=== PATIENT | male | born 1975 | race Caucasian/White ===

== ENCOUNTER 2019-11-17 | Emergency (ER) | payer OTHER | END 2019-11-17 02:54 | disposition home or self-care (01) | CPT/HCPCS: 36415; 80053; 81003; 82009; 82550; 83605; 83930; 85025; 96360; 96361; 99284 ==

== ENCOUNTER 2020-11-03 13:00 | Emergency (ER) | payer OTHER ==
[2020-11-03 13:08] VITALS: TEMP 98.1
[2020-11-03 13:11] LABS: Glucose,Whole Blood 230 mg/dL (75-99)
[2020-11-03] MEDS ORDERED: SODIUM CHLORIDE 0.9% 2,000 ML IV STA (13:18)
[2020-11-03 14:04] LABS: Appearance,Urine Clear (Clear); Bilirubin,Urine Negative (Negative); Blood,Urine Negative (Negative); Color,Urine Light Yellow; Glucose,Urine (UA) 4+ (Negative); Ketones,Urine Trace (Negative); Leukocyte Esterase,Urine Negative (Negative); Nitrite,Urine Negative (Negative); PH, Urine 5.5 (5.0-8.0); Protein,Urine Negative (Negative); Specific Gravity,Urine 1.036 (1.001-1.035); Urobilinogen,Urine <2.0 mg/dL (<2.0)
[2020-11-03 14:07] LABS: ALT 24 U/L (4-49); AST 21 U/L (17-59); African American GFR (CKD) >90 (>60 ml/min/1.73 sqM); Albumin 4.4 g/dL (3.5-5.0); Alkaline Phosphatase 92 U/L (38-126); Anion Gap 9 mmol/L; Blood Urea Nitrogen 27 mg/dL (9-20); Calcium 9.5 mg/dL (8.4-10.2); Carbon Dioxide 22 mmol/L (22-30); Chloride 104 mmol/L (98-107); Glucose 290 mg/dL (74-99); Lipase 228 U/L (23-300); Magnesium 1.8 mg/dL (1.6-2.3); Non-African American GFR(CKD) >90 (>60 ml/min/1.73 sqM); Potassium 4.7 mmol/L (3.5-5.1); Sodium 135 mmol/L (137-145); Total Bilirubin 0.9 mg/dL (0.2-1.3); Total Protein 7.6 g/dL (6.3-8.2)
[2020-11-03 14:13] LABS: Basophils # (A) 0.1 k/uL (0-0.2); Basophils % (A) 1 %; Eosinophils # (A) 0.3 k/uL (0-0.7); Eosinophils % (A) 3 %; HCT 45.3 % (39.0-53.0); HGB 15.9 gm/dL (13.0-17.5); Lymphocytes # (A) 2.5 k/uL (1.0-4.8); Lymphocytes % (A) 26 %; MCH 30.2 pg (25.0-35.0); MCV 86.1 fL (80.0-100.0); Mean Platelet Volume 8.6; Monocytes # (A) 0.5 k/uL (0-1.0); Monocytes % (A) 6 %; Neutrophils # (A) 6.1 k/uL (1.3-7.7); Neutrophils % (A) 64 %; Platelet Count 191 k/uL (150-450); RBC 5.26 m/uL (4.30-5.90); RDW 12.7 % (11.5-15.5); WBC 9.6 k/uL (3.8-10.6)
--- NOTE | 2020-11-03 14:18 | ED ---
General Adult HPI - General Chief complaint: Recheck/Abnormal Lab/Rx Stated complaint: High blood sugar Time Seen by Provider: 11/03/20 13:08 Source: patient, RN notes reviewed Mode of arrival: ambulatory Limitations: no limitations - History of Present Illness Initial comments: 45-year-old male presents emergency Department chief complaint of hyperglycemia. Patient's blood sugar has been recently elevated. Patient does state that he was doing well throughout the summer of last year and the winter with diet control. Patient states he was on metformin prior to that but states that he was not taking consistently because his blood sugar was well he states that recently has started taking it because of his diet change. Patient has noticed blood sugar has been in the 400s. Patient had slight nausea no chest pain or shortness breath no headache or dizziness currently. Patient had some polyuria. - Related Data Previous Rx's Medication Instructions Recorded metFORMIN HCL [Glucophage] 1,000 mg PO BID #60 tab 11/17/19 metFORMIN HCL 1,000 mg PO BID #60 tab 11/03/20 Allergies Allergy/AdvReac Type Severity Reaction Status Date / Time loperamide [From Imodium A-D] Allergy Rash/Hives Verified 11/03/20 13:08 Penicillins Allergy Rash/Hives Verified 11/03/20 13:08 Review of Systems ROS Statement: Those systems with pertinent positive or pertinent negative responses have been documented in the HPI. ROS Other: All systems not noted in ROS Statement are negative. Past Medical History Past Medical History: Diabetes Mellitus History of Any Multi-Drug Resistant Organisms: None Reported Past Surgical History: Orthopedic Surgery Past Psychological History: No Psychological Hx Reported Smoking Status: Current every day smoker Past Alcohol Use History: Occasional, Rare Past Drug Use History: None Reported General Exam Limitations: no limitations General appearance: alert, in no apparent distress Head exam: Present: atraumatic, normocephalic, normal inspection Eye exam: Present: normal appearance, PERRL, EOMI. Absent: scleral icterus, conjunctival injection, periorbital swelling ENT exam: Present: normal exam, normal oropharynx, mucous membranes moist Neck exam: Present: normal inspection, full ROM. Absent: tenderness, meni ngismus, lymphadenopathy Respiratory exam: Present: normal lung sounds bilaterally. Absent: respiratory distress, wheezes, rales, rhonchi, stridor Cardiovascular Exam: Present: regular rate, normal rhythm, normal heart sounds. Absent: systolic murmur, diastolic murmur, rubs, gallop, clicks GI/Abdominal exam: Present: soft, normal bowel sounds. Absent: distended, tenderness, guarding, rebound, rigid Extremities exam: Absent: pedal edema Neurological exam: Present: alert, oriented X3 Skin exam: Present: warm, dry, intact, normal color. Absent: rash Course Vital Signs 11/03/20 13:03 Temperature 98.1 F Pulse Rate 78 Respiratory 18 Rate Blood Pressure 138/94 O2 Sat by Pulse 97 Oximetry Medical Decision Making - Medical Decision Making 45-year-old male presented for hyperglycemia. Patient's hyperglycemia related to not taking his medications. Patient's blood sugar after 2 L of fluids is 276 though he did eat4 hot dogs prior arrival. Patient has no other major symptoms. Patient discharged in stable condition return parameters were discussed - Lab Data Result diagrams: 11/03/20 13:21 11/03/20 13:21 Lab Results 11/03/20 11/03/20 11/03/20 Range/Units 13:09 13:21 13:21 WBC 9.6 (3.8-10.6) k/uL RBC 5.26 (4.30-5.90) m/uL Hgb 15.9 (13.0-17.5) gm/dL Hct 45.3 (39.0-53.0) % MCV 86.1 (80.0-100.0) fL MCH 30.2 (25.0-35.0) pg MCHC 35.0 (31.0-37.0) g/dL RDW 12.7 (11.5-15.5) % Plt Count 191 (150-450) k/uL MPV 8.6 Neutrophils % 64 % Lymphocytes % 26 % Monocytes % 6 % Eosinophils % 3 % Basophils % 1 % Neutrophils # 6.1 (1.3-7.7) k/uL Lymphocytes # 2.5 (1.0-4.8) k/uL Monocytes # 0.5 (0-1.0) k/uL Eosinophils # 0.3 (0-0.7) k/uL Basophils # 0.1 (0-0.2) k/uL Sodium (137-145) mmol/L Potassium (3.5-5.1) mmol/L Chloride (98-107) mmol/L Carbon Dioxide (22-30) mmol/L Anion Gap mmol/L BUN (9-20) mg/dL Creatinine (0.66-1.25) mg/dL Est GFR (CKD-EPI)AfAm (>60 ml/min/1.73 sqM) Est GFR (CKD-EPI)NonAf (>60 ml/min/1.73 sqM) Glucose (74-99) mg/dL POC Glucose (mg/dL) 230 H (75-99) mg/dL POC Glu [employer] ID [facility] Plasma Lactic Acid Darren (0.7-2.0) mmol/L Calcium (8.4-10.2) mg/dL Magnesium (1.6-2.3) mg/dL Total Bilirubin (0.2-1.3) mg/dL AST (17-59) U/L ALT (4-49) U/L Alkaline Phosphatase (38-126) U/L Total Protein (6.3-8.2) g/dL Albumin (3.5-5.0) g/dL Lipase (23-300) U/L Urine Color Light Yellow Urine Appearance Clear (Clear) Urine pH 5.5 (5.0-8.0) Ur Specific [place] 1.036 H (1.001-1.035) Urine Protein Negative (Negative) Urine Glucose (UA) 4+ H (Negative) Urine Ketones Trace H (Negative) Urine Blood Negative (Negative) Urine Nitrite Negative (Negative) Urine Bilirubin Negative (Negative) Urine Urobilinogen <2.0 (<2.0) mg/dL Ur Leukocyte Esterase Negative (Negative) Acetone, Qual (Negative) 11/03/20 11/03/20 Range/Units 13:21 13:21 WBC (3.8-10.6) k/uL RBC (4.30-5.90) m/uL Hgb (13.0-17.5) gm/dL Hct (39.0-53.0) % MCV (80.0-100.0) fL MCH (25.0-35.0) pg MCHC (31.0-37.0) g/dL RDW (11.5-15.5) % Plt Count (150-450) k/uL MPV Neutrophils % % Lymphocytes % % Monocytes % % Eosinophils % % Basophils % % Neutrophils # (1.3-7.7) k/uL Lymphocytes # (1.0-4.8) k/uL Monocytes # (0-1.0) k/uL Eosinophils # (0-0.7) k/uL Basophils # (0-0.2) k/uL Sodium 135 L (137-145) mmol/L Potassium 4.7 (3.5-5.1) mmol/L Chloride 104 (98-107) mmol/L Carbon Dioxide 22 (22-30) mmol/L Anion Gap 9 mmol/L BUN 27 H (9-20) mg/dL Creatinine 0.92 (0.66-1.25) mg/dL Est GFR (CKD-EPI)AfAm >90 (>60 ml/min/1.73 sqM) Est GFR (CKD-EPI)NonAf >90 (>60 ml/min/1.73 sqM) Glucose 290 H (74-99) mg/dL POC Glucose (mg/dL) (75-99) mg/dL POC Glu [employer] ID Plasma Lactic Acid Darren 1.2 (0.7-2.0) mmol/L Calcium 9.5 (8.4-10.2) mg/dL Magnesium 1.8 (1.6-2.3) mg/dL Total Bilirubin 0.9 (0.2-1.3) mg/dL AST 21 (17-59) U/L ALT 24 (4-49) U/L Alkaline Phosphatase 92 (38-126) U/L Total Protein 7.6 (6.3-8.2) g/dL Albumin 4.4 (3.5-5.0) g/dL Lipase 228 (23-300) U/L Urine Color Urine Appearance (Clear) Urine pH (5.0-8.0) Ur Specific [place] (1.001-1.035) Urine Protein (Negative) Urine Glucose (UA) (Negative) Urine Ketones (Negative) Urine Blood (Negative) Urine Nitrite (Negative) Urine Bilirubin (Negative) Urine Urobilinogen (<2.0) mg/dL Ur Leukocyte Esterase (Negative) Acetone, Qual Negative (Negative) Disposition Clinical Impression: Hyperglycemia, Encounter for medication refill Disposition: HOME SELF-CARE Condition: Stable Instructions (If sedation given, give patient instructions): Diabetic Hyperglycemia (ED) Additional Instructions: Please return to the Emergency Department if symptoms worsen or any other concerns. Prescriptions: metFORMIN HCL 1,000 mg PO BID #60 tab Is patient prescribed a controlled substance at d/c from ED?: No Referrals: None,Stated [Primary Care Provider] - 1-2 days Kevin Caballero [STAFF PHYSICIAN] - 1-2 days Time of Disposition: 14:49
[2020-11-03 14:47] LABS: Glucose,Whole Blood 276 mg/dL (75-99)
[2020-11-03] MEDS ORDERED: INSULIN REGULAR 100 UNIT/ML VIAL IV ONE (14:47)
[2020-11-03 15:04] VITALS: BP 146/82; PULSE 80; RESP 20
== END 2020-11-03 15:06 | disposition home or self-care (01) ==
LOC: EC 13:00
DX: E11.65 Type 2 diabetes mellitus with hyperglycemia (principal); F17.200 Nicotine dependence, unspecified, uncomplicated; Z76.0 Encounter for issue of repeat prescription; Z79.84 Long term (current) use of oral hypoglycemic drugs
CPT/HCPCS: 36415; 80053; 81003; 82009; 83605; 83690; 83735; 85025; 99284

== ENCOUNTER 2021-08-11 11:24 | Emergency (ER) | payer OTHER ==
[2021-08-11 11:35] VITALS: TEMP 98.6
--- NOTE | 2021-08-11 12:54 | ED ---
URI HPI - General Chief Complaint: Upper Respiratory Infection Stated Complaint: chest pain, loss of taste & smell Time Seen by Provider: 08/11/21 11:52 Source: patient, RN notes reviewed Mode of arrival: ambulatory Limitations: no limitations - History of Present Illness Initial Comments: Patient is a 46-year-old male that presents to emergency department complaining of upper respiratory tract symptoms including cough. He notes he is unsure of his Covid exposure. He notes that he lost his sense of taste and smell 4 days ago and had symptoms 1-2 days prior. He was otherwise well-appearing. He denied any other issues or complaints. He denied chest pain shortness of breath headache nausea vomiting diarrhea constipation fever fatigue chills. - Related Data Previous Rx's Medication Instructions Recorded metFORMIN HCL [Glucophage] 1,000 mg PO BID #60 tab 11/17/19 metFORMIN HCL [Glucophage] 1,000 mg PO BID #60 tab 11/03/20 Allergies Allergy/AdvReac Type Severity Reaction Status Date / Time loperamide [From Imodium A-D] Allergy Rash/Hives Verified 08/11/21 11:35 Penicillins Allergy Rash/Hives Verified 08/11/21 11:35 Review of Systems ROS Statement: Those systems with pertinent positive or pertinent negative responses have been documented in the HPI. ROS Other: All systems not noted in ROS Statement are negative. Past Medical History Past Medical History: Diabetes Mellitus History of Any Multi-Drug Resistant Organisms: None Reported Past Surgical History: Orthopedic Surgery Past Psychological History: No Psychological Hx Reported Smoking Status: Current every day smoker Past Alcohol Use History: Occasional, Rare Past Drug Use History: None Reported General Exam Limitations: no limitations General appearance: alert, in no apparent distress Head exam: Present: atraumatic, normocephalic, normal inspection Eye exam: Present: normal appearance, PERRL, EOMI. Absent: scleral icterus, conjunctival injection, periorbital swelling ENT exam: Present: normal exam, mucous membranes moist Neck exam: Present: normal inspection Respiratory exam: Present: normal lung sounds bilaterally. Absent: respiratory distress, wheezes, rales, rhonchi, stridor Cardiovascular Exam: Present: regular rate, normal rhythm, normal heart sounds. Absent: systolic murmur, diastolic murmur, rubs, gallop, clicks GI/Abdominal exam: Present: soft, normal bowel sounds. Absent: distended, tenderness, guarding, rebound, rigid Extremities exam: Present: normal inspection, full ROM, normal capillary refill. Absent: tenderness, pedal edema, joint swelling, calf tenderness Neurological exam: Present: alert, oriented X3 Psychiatric exam: Present: normal affect, normal mood Skin exam: Present: warm, dry, intact, normal color. Absent: rash Course Vital Signs 08/11/21 11:32 Temperature 98.6 F Pulse Rate 87 Respiratory 20 Rate Blood Pressure 120/80 O2 Sat by Pulse 99 Oximetry Medical Decision Making - Medical Decision Making 46-year-old male with loss of sense of taste and a cough for the past several days. Covid test ordered. Covid test positive. Patient does meet criteria for monoclonal antibody infusion wishes to undergo IV infusion. Patient is agreeable with discharge home after. Case discussed with Dr. Winters. - Lab Data Lab Results 08/11/21 Range/Units 11:36 Coronavirus (PCR) Detected A (Not Detectd) Disposition Clinical Impression: COVID Disposition: HOME SELF-CARE Condition: Stable Instructions (If sedation given, give patient instructions): Coronavirus Disease 2019 (COVID-19) Additional Instructions: Please return to the Emergency Department if symptoms worsen or any other concerns. Is patient prescribed a controlled substance at d/c from ED?: No Referrals: None,Stated [Primary Care Provider] - 1-2 days Time of Disposition: 12:53
[2021-08-11] MEDS ORDERED: CASIRIVIMAB (REGN10933) (EUA) 600 MG, IMDEVIMAB (REGN10987) (EUA) 600 MG in SODIUM CHLO... IVPB ONE (13:00)
[2021-08-11] MEDS ORDERED: SODIUM CHLORIDE 0.9% 50 ML IVPB ONE (13:00)
[2021-08-11 14:37] VITALS: BP 142/92; PULSE 72; RESP 16
== END 2021-08-11 14:47 | disposition home or self-care (01) ==
LOC: EC 11:24
DX: U07.1 COVID-19 (principal); E11.9 Type 2 diabetes mellitus without complications; F17.200 Nicotine dependence, unspecified, uncomplicated; Z79.84 Long term (current) use of oral hypoglycemic drugs
CPT/HCPCS: 87635; 99284; Q0244

== ENCOUNTER 2024-09-11 11:57 | Observation (INO) | payer BC, OTHER ==
--- NOTE | 2024-09-11 12:12 | ED ---
Recheck HPI - General Source: patient, RN notes reviewed Mode of arrival: ambulatory Limitations: no limitations <Caron Fernandez - Last Filed: 09/11/24 12:09> <Ayala Mcleod - Last Filed: 09/11/24 21:28> - General Stated Complaint: high blood sugar Time Seen by Provider: 09/11/24 12:09 - History of Present Illness Initial Comments: Quick note: 49 year old male presenting to the ER for evaluation of hypergylcemia. Patient is a type II diabetic and take metformin and glipizide. He states he felt dizzy at work and check his sugar which was found to be 398. He took both of his medications this am. (Caron Fernandez) Patient is a 49-year-old male presenting today for dizziness and hyperglycemia. Pt states that he has been out of his glipizide for 1 month due to issues getting to the pharmacy to fill his script. He was also previously on Januvia however has not been able to take that for 2 months due to cost. Patient currently is taking 1000 mg of metformin twice daily. This morning he was at work, walking when he felt like he "saw stars" and did not feel like himself. He checked his blood sugar and it was 398. On recheck blood sugar remained in the 300s so he called his who brought him to the hospital. Pt endorses his tongue feeling as though it his "numb" but denies slurred speech currently, states he has had intermittent numbness in his left 1st and 2nd digits over the last 2-3 days without injury. Currently denies changes in vision, dizziness, headache, difficulty swallowing, chest pain, difficulty in breathing, fevers, chills, recent illness, nausea, vomiting, abdominal pain, diarrhea, urinary frequency. No hx prior CVA, no hx CAD. (Ayala Mcleod) - Related Data Home Medications Medication Instructions Recorded Confirmed Glipizide (Unknown) 10 mg PO DIRECTED 09/11/24 09/11/24 metFORMIN HCL [Glucophage] 1,000 mg PO DIRECTED 09/11/24 09/11/24 Allergies Allergy/AdvReac Type Severity Reaction Status Date / Time loperamide [From Imodium A-D] Allergy Rash/Hives Verified 09/11/24 19:09 Penicillins Allergy Rash/Hives Verified 09/11/24 19:09 Review of Systems ROS Other: All systems not noted in ROS Statement are negative. <Caron Fernandez - Last Filed: 09/11/24 12:09> ROS Other: All systems not noted in ROS Statement are negative. <Ayala Mcleod - Last Filed: 09/11/24 21:28> ROS Statement: Those systems with pertinent positive or pertinent negative responses have been documented in the HPI. Past Medical History Past Medical History: Diabetes Mellitus History of Any Multi-Drug Resistant Organisms: None Reported Past Surgical History: Orthopedic Surgery Past Psychological History: No Psychological Hx Reported Smoking Status: Current every day smoker Past Alcohol Use History: Occasional, Rare Past Drug Use History: None Reported <PhilipcathieCaron - Last Filed: 09/11/24 12:09> General Exam <Ayala Mcleod - Last Filed: 09/11/24 21:28> - General Exam Comments Initial Comments: PE: CONSTITUTIONAL: No apparent distress, well appearing SKIN: Warm, dry, no jaundice, hives or petechiae EYES: Pupils are equally round, extraocular movements intact without nystagmus, clear conjunctiva, non-icteric sclera HENT: Normocephalic, atraumatic, moist mucus membranes, oropharynx clear without exudates NECK: , Full range of motion, normal appearance PULMONARY: Clear to auscultation without wheezes, rhonchi, or rales, normal excursion, no accessory muscle use and no stridor CARDIOVASCULAR: Regular rate, rhythm, normal S1 and S2. No appreciated murmurs, rubs or gallops. Extremities well-perfused no lower extremity edema GASTROINTESTINAL: Soft, active bowel sounds throughout, non-tender, non- distended, no palpable masses, no rebound or guarding. No hepatosplenomegaly GENITOURINARY: MUSCULOSKELETAL: Extremities have no gross deformity, no edema, redness, or swelling. NEUROLOGIC:_a/o x 3, GCS 15, normal mentation and speech. Moves all extremities x 4 without motor or sensory deficit, cranial nerves: II (visual mantilla without defects), III, IV and (extraocular movements are intact, pupils are equal with normal reaction to light), V (intact facial sensation and jaw opening), VII (no facial droop), IX and X (normal palate movement, midline uvula, normal voice), XI (symmetrical shoulder shrug), XII (midline tongue protrusion). Motor strength is 5/5 in all extremities. No abnormal movements. Normal muscle tone. Sensation to light touch is intact bilaterally, w/ exception of tingling in left 1st and 2nd digits. No cerebellar signs ([id number], jxoq-[id number], and rapid alternating movements are normal) PSYCHIATRIC:_normal mood and affect, thought process is clear and linear (Ayala Mcleod) Course Vital Signs 09/11/24 09/11/24 09/11/24 12:35 17:49 19:43 Temperature 98.2 F Pulse Rate 70 54 L 87 Respiratory 20 18 18 Rate Blood Pressure 172/96 136/94 138/102 O2 Sat by Pulse 99 99 98 Oximetry Medical Decision Making - Lab Data Result diagrams: 09/11/24 14:46 09/11/24 14:46 <Ayala Mcleod - Last Filed: 09/11/24 21:28> - Medical Decision Making Was pt. sent in by a medical professional or institution (, PA, CHIPPER MACHINE OPERATOR, urgent care, hospital, or jail...) When possible be specific @ -No Did you speak to anyone other than the patient for history (EMS, parent, family, police, friend...)? What history was obtained from this source @ -No Did you review nursing and triage notes (agree or disagree)? Why? @ -I reviewed nursing and triage notes Were old charts reviewed (outside hosp., previous admission, EMS record, old EKG, old radiological studies, urgent care reports/EKG's, jail records)? Report findings @ -Medical records reviewed Differential Diagnosis (chest pain, altered mental status, abdominal pain women, abdominal pain men, vaginal bleeding, weakness, fever, dyspnea, syncope, h eadache, dizziness, GI bleed, back pain, seizure, CVA, palpatations, mental health, musculoskeletal)? @ -Differential diagnose remains broad over top considerations include uncontrolled diabetes mellitus, secondary to dietary intake, medication noncompliance, uncontrolled diabetes, HHS, DKA, infection, this is not all- inclusive list EKG interpreted by me (3pts min.). @Sinus bradycardia, rate 50 bpm, WI interval 193 ms, QRS duration 98 ms QT/QTc 427/401 ms, normal axis, no STEMI, no significant ST elevations or depressions X-rays interpreted by me (1pt min.). @No cardiomegaly, consolidations or pleural effusion CT interpreted by me (1pt min.). @ -No evidence of hemorrhage, mass effect or mass on CT brain, no evidence of dissection or large vessel occlusion on CTA U/S interpreted by me (1pt. min.). @ -None done What testing was considered but not performed or refused? (CT, X-rays, U/S, l abs)? Why? @ -None What meds were considered but not given or refused? Why? @ -None Did you discuss the management of the patient with other professionals (professionals i.e. DrSrinivasan, PA, CHIPPER MACHINE OPERATOR, lab, RT, psych nurse, social media intern, immigration lawyer, teacher, chemistry technical officer, case technician)? Give summary @ Case was discussed with Dr. Canela, as admission was considered for hyperglycemia however Dr. Canela kindly recommended Insulin levimir 20U, dose sliding scale/insulin novolog, pt's home glipize and metoformin and outpatient follow up Was smoking cessation discussed for >3mins.? @ -No Was critical care preformed (if so, how long)? Yes, 35 minutes Were there social determinants of health that impacted care today? How? (Homelessness, low income, unemployed, alcoholism, drug addiction, transportation, low edu. Level, literacy, decrease access to med. care, skilled nursing, rehab)? @ -No Was there de-escalation of care discussed even if they declined (Discuss DNR or withdrawal of care, Hospice)? @ -No What co-morbidities impacted this encounter? (DM, HTN, Smoking, COPD, CAD, Cancer, CVA, ARF, Chemo, Hep., AIDS, mental health diagnosis, sleep apnea, morbid obesity)? @ -DM Was patient admitted / discharged? Hospital course, mention meds given and route, prescriptions, significant lab abnormalities, going to OR and other pertinent info. @ -Admission- Patient is a 49 y/o male PMH DM presenting today for light headedness, checked his sugar today was noted to be hyperglycemic with blood glucose 398. Blood glucose here 271. Patient endorses feeling like his tongue feels numb and his head feels fuzzy, otherwise denies changes in vision, urinary frequency, chest pain or shortness of breath. No history of CHF. 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 He did state that he also had "A couple of faygos" (soda) this weekend which also may be contributing to his hypergylcemia. CBC and CMP were obtained while patient was in triage. Aside from hyperglycemia labs reassuring. Added acetone level, will give IV fluids and reassess. After 2 L normal saline, and patient being n.p.o. throughout the day today, blood glucose actually increased to 229. I reassessed the patient and he endorses mild improvement of symptoms. I discussed with patient and administering IV insulin and metformin and reassessing versus admission for observation. Patient and are concerned as the patient lives all the way in [place] and should patient's hyperglycemia worsen this evening, they will need to drive back. Will discuss with Dr. Canela for potential admission. Discussed with Dr. Canela, recs as above, will attempt further glycemic control. Patient's sensation of tongue numbness did not improve as glucose became more controlled and also noted intermittent tingling in 1st and 2nd digits over the last 2 days. I suspected tingling was secondary to peripheral neuropathy however cannot rule out central cause. Neuro exam remarkable only for tingling in 1st and 2nd digits of left hand, NIH 1, so stroke alert was not called however CT brain/CTA ordered to assess for intracranial cause of tongue numbness/finger tingling. Pt agreeable with POC. Imaging negative for acute process. Case discussed with Dr. Canela, kindly accepts patient for admission. Undiagnosed new problem with uncertain prognosis? @ -No Drug Therapy requiring intensive monitoring for toxicity (Heparin, Nitro, Insulin, Cardizem)? @ -No Were any procedures done? @ -No Diagnosis/symptom? Acute Acute, or Chronic, or Acute on Chronic? Hyperglycemia, dizziness, tongue numbness Uncomplicated (without systemic symptoms) or Complicated (systemic symptoms)? @complicated Side effects of treatment? @ -No Exacerbation, Progression, or Severe Exacerbation? @ -No Poses a threat to life or bodily function? How? (Chest pain, [place], [place], pneumonia, PE, COPD, DKA, ARF, appy, cholecystitis, CVA, Diverticulitis, Homicidal, Suicidal, threat to staff... and all critical care pts) @ -Potentially (Ayala Mcleod) - Lab Data Lab Results 09/11/24 09/11/24 09/11/24 Range/Units 14:46 14:46 14:46 WBC 8.5 (3.8-10.6) k/uL RBC 5.16 (4.30-5.90) m/uL Hgb 15.1 (13.0-17.5) gm/dL Hct 45.0 (39.0-53.0) % MCV 87.1 (80.0-100.0) fL MCH 29.2 (25.0-35.0) pg MCHC 33.5 (31.0-37.0) g/dL RDW 12.2 (11.5-15.5) % Plt Count 231 (150-450) k/uL MPV 8.4 Neutrophils % 61 % Lymphocytes % 29 % Monocytes % 5 % Eosinophils % 3 % Basophils % 1 % Neutrophils # 5.2 (1.3-7.7) k/uL Lymphocytes # 2.4 (1.0-4.8) k/uL Monocytes # 0.4 (0-1.0) k/uL Eosinophils # 0.3 (0-0.7) k/uL Basophils # 0.1 (0-0.2) k/uL PT (10.0-12.5) sec INR (<1.2) APTT (22.0-30.0) sec Sodium 135 L (137-145) mmol/L Potassium 4.6 (3.5-5.1) mmol/L Chloride 100 (98-107) mmol/L Carbon Dioxide 23 (22-30) mmol/L Anion Gap 12 mmol/L BUN 18 (9-20) mg/dL Creatinine 0.80 (0.66-1.25) mg/dL Est GFR (CKD-EPI)AfAm >90 (>60 ml/min/1.73 sqM) Est GFR (CKD-EPI)NonAf >90 (>60 ml/min/1.73 sqM) Glucose 271 H (74-99) mg/dL POC Glucose (mg/dL) (70-110) mg/dL POC Glu Medical Transcription Radiology ID Calcium 9.5 (8.4-10.2) mg/dL Total Bilirubin 0.8 (0.2-1.3) mg/dL AST 25 (17-59) U/L ALT 36 (4-49) U/L Alkaline Phosphatase 117 (38-126) U/L Creatine Kinase (55-170) U/L Troponin I (0.000-0.034) ng/mL Total Protein 7.8 (6.3-8.2) g/dL Albumin 4.7 (3.5-5.0) g/dL Acetone, Qual Negative (Negative) 09/11/24 09/11/24 09/11/24 Range/Units 16:45 17:53 19:01 WBC (3.8-10.6) k/uL RBC (4.30-5.90) m/uL Hgb (13.0-17.5) gm/dL Hct (39.0-53.0) % MCV (80.0-100.0) fL MCH (25.0-35.0) pg MCHC (31.0-37.0) g/dL RDW (11.5-15.5) % Plt Count (150-450) k/uL MPV Neutrophils % % Lymphocytes % % Monocytes % % Eosinophils % % Basophils % % Neutrophils # (1.3-7.7) k/uL Lymphocytes # (1.0-4.8) k/uL Monocytes # (0-1.0) k/uL Eosinophils # (0-0.7) k/uL Basophils # (0-0.2) k/uL PT (10.0-12.5) sec INR (<1.2) APTT (22.0-30.0) sec Sodium (137-145) mmol/L Potassium (3.5-5.1) mmol/L Chloride (98-107) mmol/L Carbon Dioxide (22-30) mmol/L Anion Gap mmol/L BUN (9-20) mg/dL Creatinine (0.66-1.25) mg/dL Est GFR (CKD-EPI)AfAm (>60 ml/min/1.73 sqM) Est GFR (CKD-EPI)NonAf (>60 ml/min/1.73 sqM) Glucose (74-99) mg/dL POC Glucose (mg/dL) 217 H 229 H 193 H (70-110) mg/dL POC Glu Medical Transcription Radiology ID Nida HUBBARD Calcium (8.4-10.2) mg/dL Total Bilirubin (0.2-1.3) mg/dL AST (17-59) U/L ALT (4-49) U/L Alkaline Phosphatase (38-126) U/L Creatine Kinase (55-170) U/L Troponin I (0.000-0.034) ng/mL Total Protein (6.3-8.2) g/dL Albumin (3.5-5.0) g/dL Acetone, Qual (Negative) 09/11/24 09/11/24 09/11/24 Range/Units 19:43 19:43 19:43 WBC (3.8-10.6) k/uL RBC (4.30-5.90) m/uL Hgb (13.0-17.5) gm/dL Hct (39.0-53.0) % MCV (80.0-100.0) fL MCH (25.0-35.0) pg MCHC (31.0-37.0) g/dL RDW (11.5-15.5) % Plt Count (150-450) k/uL MPV Neutrophils % % Lymphocytes % % Monocytes % % Eosinophils % % Basophils % % Neutrophils # (1.3-7.7) k/uL Lymphocytes # (1.0-4.8) k/uL Monocytes # (0-1.0) k/uL Eosinophils # (0-0.7) k/uL Basophils # (0-0.2) k/uL PT 11.7 (10.0-12.5) sec INR 1.1 (<1.2) APTT 25.1 (22.0-30.0) sec Sodium (137-145) mmol/L Potassium (3.5-5.1) mmol/L Chloride (98-107) mmol/L Carbon Dioxide (22-30) mmol/L Anion Gap mmol/L BUN (9-20) mg/dL Creatinine (0.66-1.25) mg/dL Est GFR (CKD-EPI)AfAm (>60 ml/min/1.73 sqM) Est GFR (CKD-EPI)NonAf (>60 ml/min/1.73 sqM) Glucose (74-99) mg/dL POC Glucose (mg/dL) (70-110) mg/dL POC Glu Medical Transcription Radiology ID Calcium (8.4-10.2) mg/dL Total Bilirubin (0.2-1.3) mg/dL AST (17-59) U/L ALT (4-49) U/L Alkaline Phosphatase (38-126) U/L Creatine Kinase 138 (55-170) U/L Troponin I <0.012 (0.000-0.034) ng/mL Total Protein (6.3-8.2) g/dL Albumin (3.5-5.0) g/dL Acetone, Qual (Negative) 09/11/24 Range/Units 20:41 WBC (3.8-10.6) k/uL RBC (4.30-5.90) m/uL Hgb (13.0-17.5) gm/dL Hct (39.0-53.0) % MCV (80.0-100.0) fL MCH (25.0-35.0) pg MCHC (31.0-37.0) g/dL RDW (11.5-15.5) % Plt Count (150-450) k/uL MPV Neutrophils % % Lymphocytes % % Monocytes % % Eosinophils % % Basophils % % Neutrophils # (1.3-7.7) k/uL Lymphocytes # (1.0-4.8) k/uL Monocytes # (0-1.0) k/uL Eosinophils # (0-0.7) k/uL Basophils # (0-0.2) k/uL PT (10.0-12.5) sec INR (<1.2) APTT (22.0-30.0) sec Sodium (137-145) mmol/L Potassium (3.5-5.1) mmol/L Chloride (98-107) mmol/L Carbon Dioxide (22-30) mmol/L Anion Gap mmol/L BUN (9-20) mg/dL Creatinine (0.66-1.25) mg/dL Est GFR (CKD-EPI)AfAm (>60 ml/min/1.73 sqM) Est GFR (CKD-EPI)NonAf (>60 ml/min/1.73 sqM) Glucose (74-99) mg/dL POC Glucose (mg/dL) 225 H (70-110) mg/dL POC Glu Medical Transcription Radiology ID SATISH HAYDEE Calcium (8.4-10.2) mg/dL Total Bilirubin (0.2-1.3) mg/dL AST (17-59) U/L ALT (4-49) U/L Alkaline Phosphatase (38-126) U/L Creatine Kinase (55-170) U/L Troponin I (0.000-0.034) ng/mL Total Protein (6.3-8.2) g/dL Albumin (3.5-5.0) g/dL Acetone, Qual (Negative) Disposition <Caron Fernandez - Last Filed: 09/11/24 12:09> <Ayala Mcleod - Last Filed: 09/11/24 21:28> Clinical Impression: Hyperglycemia, Numbness Disposition: ADMITTED IP TO THIS HOSP Condition: Stable Referrals: Moises Villarreal NPC [REFERRING] - 1-2 days
[2024-09-11 14:52] LABS: Basophils # (A) 0.1 k/uL (0-0.2); Basophils % (A) 1 %; Eosinophils # (A) 0.3 k/uL (0-0.7); Eosinophils % (A) 3 %; HGB 15.1 gm/dL (13.0-17.5); Lymphocytes # (A) 2.4 k/uL (1.0-4.8); Lymphocytes % (A) 29 %; MCH 29.2 pg (25.0-35.0); MCHC 33.5 g/dL (31.0-37.0); MCV 87.1 fL (80.0-100.0); Mean Platelet Volume 8.4; Monocytes # (A) 0.4 k/uL (0-1.0); Monocytes % (A) 5 %; Neutrophils # (A) 5.2 k/uL (1.3-7.7); Neutrophils % (A) 61 %; Platelet Count 231 k/uL (150-450); RBC 5.16 m/uL (4.30-5.90); RDW 12.2 % (11.5-15.5); WBC 8.5 k/uL (3.8-10.6)
[2024-09-11 15:07] LABS: ALT 36 U/L (4-49); AST 25 U/L (17-59); African American GFR (CKD) >90 (>60 ml/min/1.73 sqM); Albumin 4.7 g/dL (3.5-5.0); Alkaline Phosphatase 117 U/L (38-126); Anion Gap 12 mmol/L; Blood Urea Nitrogen 18 mg/dL (9-20); Calcium 9.5 mg/dL (8.4-10.2); Carbon Dioxide 23 mmol/L (22-30); Chloride 100 mmol/L (98-107); Glucose 271 mg/dL (74-99); Non-African American GFR(CKD) >90 (>60 ml/min/1.73 sqM); Potassium 4.6 mmol/L (3.5-5.1); Sodium 135 mmol/L (137-145); Total Bilirubin 0.8 mg/dL (0.2-1.3); Total Protein 7.8 g/dL (6.3-8.2)
[2024-09-11] MEDS: SODIUM CHLORIDE 0.9% 2,000 ML IV ONE (16:02)
[2024-09-11 16:46] LABS: Glucose,Whole Blood 217 mg/dL (70-110)
[2024-09-11 17:54] LABS: Glucose,Whole Blood 229 mg/dL (70-110)
[2024-09-11 19:03] LABS: Glucose,Whole Blood 193 mg/dL (70-110)
[2024-09-11] MEDS: INSULIN REGULAR 100 UNIT/ML VIAL (IV) IV ONE (19:08)
[2024-09-11] MEDS: INSULIN ASPART (NovoLOG) 100 UNIT/ML VIAL SQ ONE ×2 (19:23→19:32)
[2024-09-11] MEDS: glipiZIDE 10 MG TAB PO STA (19:31)
[2024-09-11] MEDS: metFORMIN 500 MG TAB PO SCH (19:31)
[2024-09-11] MEDS: INSULIN DETEMIR (LEVEMIR) 100 UNIT/ML SYR SQ SCH (19:35)
--- NOTE | 2024-09-11 20:10 | XR ---
EXAMINATION TYPE: XR chest 2V DATE OF EXAM: 09/11/2024 CLINICAL HISTORY: Altered mental status. TECHNIQUE: Frontal and lateral views of the chest are obtained. COMPARISON: None FINDINGS: There is no suspicious focal air space opacity, pleural effusion, or pneumothorax seen. T he cardiac silhouette size is within normal limits. The osseous structures are intact. IMPRESSION: No acute cardiopulmonary process. [facility], , 09/11/2024 8:07 PM
[2024-09-11 20:19] LABS: INR 1.1 (<1.2); Partial Thromboplastin Time 25.1 sec (22.0-30.0); Prothrombin Time 11.7 sec (10.0-12.5)
--- NOTE | 2024-09-11 20:32 | CT ---
EXAMINATION TYPE: CT brain wo con DATE OF EXAM: 09/11/2024 COMPARISON: None. CLINICAL INDICATION: Male, 49 years old with history of tongue numb, left 1st 2nd digits tingling L h and; PHH, Tongue numbness, 1st 2nd digit tingling left hand. TECHNIQUE: CT of the brain performed without contrast with sagittal and coronal reformats. CT DLP: 1115 mGycm Automated exposure control for dose reduction was used. FINDINGS: There is no acute intracranial hemorrhage or midline shift identified. Mild sulcal prominence greates t superiorly is seen. No hydrocephalus. Alan-white matter differentiation is maintained. The globes a re intact and the visualized sinuses are clear. IMPRESSION: No acute intracranial hemorrhage or midline shift is seen. If there is clinical concern for acute stroke further investigation with MRI study may be warranted. [facility], , 09/11/2024 8:30 PM
--- NOTE | 2024-09-11 20:36 | CT ---
EXAMINATION TYPE: CT angio head neck DATE OF EXAM: 09/11/2024 COMPARISON: CLINICAL INDICATION: Male, 49 years old with history of tongue numbness, 1st 2nd digit tingling left hand; PHH, Tongue numbness, 1st 2nd digit tingling left hand. TECHNIQUE: CTA scan of the head and neck is performed with IV Contrast, patient injected with 65 ml mL of Isovue 370, axial images are obtained, coronal and sagittal reformatted images are reviewed. 3D reconstructed images are created on an independent workstation and reviewed. CT DLP: 694.9 mGycm Automated exposure control for dose reduction was used. NASCET criteria was used in interpretation of this exam? FINDINGS: Right Carotid System: The common carotid artery and external carotid artery are patent. The carotid bifurcation demonstrate s no evidence of hemodynamically significant stenosis. The remaining portions of the internal carotid artery demonstrate normal size without significant narrowing. Mild peripheral calcified plaque dista lly. Left Carotid System: The common carotid artery and external carotid artery are patent. The carotid bifurcation demonstrate s no evidence of hemodynamically significant stenosis. The remaining portions of the internal carotid artery demonstrate normal size without significant narrowing. Mild peripheral calcified plaque dista lly. Vertebral arteries are patent without evidence hemodynamically significant stenosis. Vertebral arteri es are codominant There is a bovine type aortic arch which is normal.. The origins of the great vessels are patent. No evidence of hemodynamically significant stenosis. Poorly visualized anterior communicating and bilateral posterior indicating artery. No large vessel o cclusion or aneurysm at level of the [place]. Other: [id number] multilevel spurring and mild disc space narrowing in the mid to lower cervica l spine. IMPRESSION: 1. No evidence of significant stenosis at the carotid bifurcations. No large vessel occlusion or an eurysm at the level of the [place]. [facility], , 09/11/2024 8:33 PM
[2024-09-11] MEDS: ASPIRIN 325 MG TAB PO STA (20:39)
[2024-09-11 20:43] LABS: Glucose,Whole Blood 225 mg/dL (70-110)
[2024-09-11] MEDS ORDERED: ACETAMINOPHEN TAB 325 MG TAB PO PRN (21:14)
[2024-09-11] MEDS ORDERED: CALCIUM CARBONATE 500 MG CHEWABLE PO PRN (21:14)
[2024-09-11] MEDS ORDERED: NALOXONE 0.4 MG/ML 1 ML VIAL IV PRN (21:14)
[2024-09-11] MEDS ORDERED: LORazepam 0.5 MG TAB PO PRN (21:14)
[2024-09-11] MEDS ORDERED: traMADol 50 MG TAB PO PRN (21:14)
[2024-09-11] MEDS ORDERED: PROCHLORPERAZINE 5 MG TAB PO PRN (21:14)
[2024-09-11] MEDS ORDERED: MAG HYDROX/AL HYDROX/SIMETH 30 ML CUP PO PRN (21:14)
[2024-09-11 22:25] LABS: Glucose,Whole Blood 183 mg/dL (70-110)
[2024-09-12 05:35] LABS: Glucose,Whole Blood 128 mg/dL (70-110)
[2024-09-12] MEDS: INSULIN ASPART (NovoLOG) 100 UNIT/ML VIAL SQ SCH (05:43)
[2024-09-12] MEDS ORDERED: MIDAZOLAM 1 MG/ML 5 ML VIAL IV PRN (06:00)
[2024-09-12] MEDS: FAMOTIDINE 20 MG TAB PO SCH (08:35)
[2024-09-12] MEDS ORDERED: NON FORMULARY DRUG (Metformin Hcl [Glucophage] 1,000 MG Tablet) PO SCH (09:00)
[2024-09-12] MEDS: glipiZIDE 10 MG TAB PO SCH ×2 (09:13→18:19)
[2024-09-12 12:11] LABS: Glucose,Whole Blood 194 mg/dL (70-110)
[2024-09-12] MEDS: ENOXAPARIN 40 MG/0.4 ML SYRINGE SQ SCH (13:33)
[2024-09-12] MEDS: LORazepam 1 MG TAB PO STA (14:23)
[2024-09-12 15:13] LABS: Chol/HDL Ratio 5.09 Ratio; LDL Cholesterol,Calculated 98.8 mg/dL (0.0-131.0)
--- NOTE | 2024-09-12 16:12 | MR ---
EXAMINATION TYPE: MR brain wo con DATE OF EXAM: 09/12/2024 COMPARISON: CT brain 1 day earlier. HISTORY: Concern for TIA, left hand and extremity numbness. Numbness. TECHNIQUE: Multiplanar, multisequence imaging of the brain and brainstem is performed without IV cont rast. FINDINGS: Diffusion weighted images demonstrate no evidence of a recent infarct or other diffusion abnormality. There is no extraaxial fluid collection or significant white matter signal abnormality. The ventricu lar system and cisternal spaces are normal in size and appearance. The brain volume is age appropria te. Midline structures demonstrate normal morphology. The craniocervical junction appears within normal limits. Normal vascular flow voids are present. The visualized sinuses are clear and the globes are i ntact. IMPRESSION: No MRI evidence for a recent infarct. No suspicious findings are identified. [facility], , 09/12/2024 4:10 PM
[2024-09-12] MEDS: ASPIRIN 325 MG TAB PO SCH (16:18)
[2024-09-12 17:51] LABS: Glucose,Whole Blood 244 mg/dL (70-110)
--- NOTE | 2024-09-12 18:02 | P.HPIM ---
History of Present Illness H&P Date: 09/12/24 Chief Complaint: Tongue numbness, finger numbness Very pleasant 49-year-old patient, follows with Beto Villarreal. Patient been diagnosed with diabetes for last 15 years. Normally takes metformin and glipizide. Feels reasonably controlled. Before the holidays patient ran out of his glipizide and has not taken it for close to 2 months. Patient works with [employer]. When he was working yesterday he felt as if he may pass out. [place] dizzy. Sat down. Went to his truck and took his Accu-Chek came back at 387 and repeat after some time was 398. He also felt his tongue was a bit uncomfortable not really swollen and also had some numbness in the pinky and the fourth finger on the left hand on the forearm. Otherwise no change in speech headache otherwise. Also the patient's been experiencing leg cramps. For this reason patient was brought in. Was given 1 dose of Levemir in the evening. Patient's at the bedside. Review of systems: GEN.: None EYES: None HEENT: As above NECK: None RESPIRATORY: None CARDIOVASCULAR: None GASTROINTESTINAL: None GENITOURINARY: None MUSCULOSKELETAL: None LYMPHATICS: None HEMATOLOGICAL: None PSYCHIATRY: None NEUROLOGICAL: As above Social history: Patient stopped smoking a year ago. Smoked about a pack a day for last 28 years. Lives with his . 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 Physical examination: VITAL SIGNS: 97.4, 55, 18, 152 x 88, 98% room air GENERAL: BMI 28.9, sitting in bed awake comfortable. EYES: Pupils equal. Conjunctiva lamonte l. HEENT: External appearance of nose and ears normal, oral cavity grossly normal. NECK: JVD not raised; masses not palpable. HEART: First and second heart sounds are normal; no edema. LUNGS: Respiratory rate normal; clear to auscultation. ABDOMEN: Soft, nontender, liver spleen not palpable, no masses palpable. PSYCH: Alert and oriented x3; mood and affect lamonte l. MUSCULOSKELETAL:No Clubbing/cyanosis;muscles-grossly intact NEUROLOGICAL: Cranial nerves grossly intact; no facial asymmetry, power and sensation grossly intact. LYMPHATICS: No lymph nodes palpable in the axilla and neck. INVESTIGATIONS, reviewed in the clinical context: September 11: White count 8.5 hemoglobin 15.1 platelets 231 sodium 135 potassium 4.6 creatinine 0.8 admission glucose 271 EKG tracing personally reviewed by me-heart rate [address] brain without contrast: Unremarkable CT angiogram head and neck: Unremarkable Chest x-ray film personally reviewed by me-unremarkable Assessment plan: -Possible TIA. Patient noticed some numbness in the tongue. And some in the left forearm pinky and fourth finger. Risk factors include uncontrolled cont rolled diabetes -Diabetes mellitus type 2, uncontrolled with hyperglycemia Patient's been diabetic for 15 years. 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 Will resume patient on metformin 1000 mg twice daily. Will also increase glyburide to 10 mg twice daily.. Accu-Cheks with sliding scale insulin -Essential hypertension Given a diabetic. Patient lisinopril 10 mg nightly -Mild hyperlipidemia LDL 98 Given a diabetic start Lipitor 20 mg nightly MRI brain was ordered. Care was discussed with patient . Neurology was consulted. Past Medical History Past Medical History: Diabetes Mellitus History of Any Multi-Drug Resistant Organisms: None Reported Past Surgical History: Orthopedic Surgery Additional Past Surgical History / Comment(s): Left shoulder 2013 Past Psychological History: No Psychological Hx Reported Smoking Status: Former smoker, Vaper Past Alcohol Use History: Occasional, Rare Past Drug Use History: None Reported Medications and Allergies Home Medications Medication Instructions Recorded Confirmed Type metFORMIN HCL [Glucophage] 1,000 mg PO BID 09/11/24 09/12/24 History glipiZIDE XL [Glucotrol Xl] 10 mg PO DAILY 09/12/24 09/12/24 History Allergies Allergy/AdvReac Type Severity Reaction Status Date / Time loperamide [From Imodium A-D] Allergy Rash/Hives Verified 09/11/24 19:09 Penicillins Allergy Rash/Hives Verified 09/11/24 19:09 Physical Exam Vitals: Vital Signs Temp Pulse Pulse Resp BP BP BP 09/12/24 15:00 97.9 F 81 16 124/81 09/12/24 14:00 18 09/12/24 08:00 18 09/12/24 07:00 97.4 F L 55 L 18 152/88 09/12/24 01:26 97.3 F L 66 16 144/89 09/12/24 00:00 66 09/11/24 23:20 97 F L 64 17 154/87 09/11/24 22:53 97.9 F 73 16 140/88 09/11/24 21:39 75 18 128/77 09/11/24 19:43 87 18 138/102 Pulse Ox 09/12/24 15:00 98 09/12/24 14:00 09/12/24 08:00 09/12/24 07:00 98 09/12/24 01:26 97 09/12/24 00:00 09/11/24 23:20 97 09/11/24 22:53 96 09/11/24 21:39 96 09/11/24 19:43 98 Intake and Output 09/12/24 09/12/24 09/12/24 06:59 14:59 22:59 Intake Total 238 Balance 238 Intake: Oral 238 Other: Voiding Method Toilet Toilet # Voids 1 # Bowel Movements 1 Weight 99.337 kg Results CBC & Chem 7: 09/11/24 14:46 09/11/24 14:46 Labs: Abnormal Lab Results - Last 24 Hours (Table) 09/11/24 09/11/24 09/11/24 Range/Units 14:46 17:53 19:01 POC Glucose (mg/dL) 229 H 193 H (70-110) mg/dL Triglycerides 193.00 H (0.00-149.00) mg/dL HDL Cholesterol 33.60 L (40.00-60.00) mg/dL 09/11/24 09/11/24 09/12/24 Range/Units 20:41 22:23 05:32 POC Glucose (mg/dL) 225 H 183 H 128 H (70-110) mg/dL Triglycerides (0.00-149.00) mg/dL HDL Cholesterol (40.00-60.00) mg/dL 09/12/24 09/12/24 Range/Units 12:09 17:50 POC Glucose (mg/dL) 194 H 244 H (70-110) mg/dL Triglycerides (0.00-149.00) mg/dL HDL Cholesterol (40.00-60.00) mg/dL Thrombosis Risk Factor Assmnt - Choose All That Apply Any of the Below Risk Factors Present?: Yes Each Factor Represents 1 point: Age 41-60 years, Obesity (BMI >25) Other Risk Factors: No Other congenital or acquired thrombophilia - If yes, enter type in comment: No Thrombosis Risk Factor Assessment Total Risk Factor Score: 2 Thrombosis Risk Factor Assessment Level: Low Risk
[2024-09-12 20:09] LABS: Glucose,Whole Blood 184 mg/dL (70-110)
[2024-09-12] MEDS: lisinopriL 10 MG TAB PO SCH (20:35)
[2024-09-12] MEDS: ATORVASTATIN 20 MG TAB PO SCH (20:35)
[2024-09-13 05:50] LABS: Glucose,Whole Blood 120 mg/dL (70-110)
--- NOTE | 2024-09-13 08:27 | P.CNNES ---
History of Present Illness Consult date: 09/12/24 Requesting physician: Ayala Mcleod Reason for Consult: Question TIA History of Present Illness: Patient is a 49-year-old right-handed male, with history of diabetes, X tobacco use, came to the hospital yesterday at 11:57 AM for possible TIA type symptoms. Patient states that he was at work when he became dizzy. He checked his blood sugar was 380. After some time, he checked it again and it was 398. 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 His works at the same place. She brought him to the hospital. Yesterday while patient was coming to the ER, he had an episode, in which he felt his tongue was swollen. It lasted for 3-4 hours and then went away. His noted that it was somewhat hard to understand. Patient also mentions that in the past 1 week, he had 3 episodes, in which she developed numbness and tingling of the left and somewhat in ulnar nerve distribution but extending up to the elbow medially. It comes and goes, lasting about 5 minutes. Not positional. Lately he has noticed increase charl ey horse in his calves. It mainly happens when he is in the recliner, or laying down. Denies any visual symptoms, any focal weakness. No report of facial droop. Vital signs on arrival blood pressure 172/96, which came down to 136/94. Pulse rate 70 temperature 98.2. Blood test shows normal CBC, PT PTT, sodium 135 potassium 4.6, normal renal and hepatic panel. CK normal, troponin negative. A cetone negative. Blood sugar 271. EKG showed sinus bradycardia with sinus arrhythmia. Chest x-ray showed no acute process. CT head revealed no acute intracranial process. I personally reviewed CT head, and agree with the findings. Visualized paranasal sinuses are clear. CTA of head and neck r evealed no evidence of significant stenosis at the carotid bifurcations. No large vessel occlusion or aneurysm at the level of [place]. Patient has history of diabetes for 15 years. Denies hypertension. He has smoked about half pack per day since age 21, until he quit in November 2023. He denies any alcohol use. 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 Home medications include glipizide and metformin. Patient does not take any antiplatelets or anticoagulants. Review of Systems All pertinent positive and negative review of symptoms mentioned in the HPI. Past Medical History Past Medical History: Diabetes Mellitus History of Any Multi-Drug Resistant Organisms: None Reported Past Surgical History: Orthopedic Surgery Additional Past Surgical History / Comment(s): Left shoulder 2013 Past Psychological History: No Psychological Hx Reported Smoking Status: Former smoker, Vaper Past Alcohol Use History: Occasional, Rare Past Drug Use History: None Reported Medications and Allergies Home Medications Medication Instructions Recorded Confirmed Type metFORMIN HCL [Glucophage] 1,000 mg PO BID 09/11/24 09/12/24 History glipiZIDE XL [Glucotrol Xl] 10 mg PO DAILY 09/12/24 09/12/24 History Allergies Allergy/AdvReac Type Severity Reaction Status Date / Time loperamide [From Imodium A-D] Allergy Rash/Hives Verified 09/11/24 19:09 Penicillins Allergy Rash/Hives Verified 09/11/24 19:09 Physical Examination - Vital Signs Vital Signs: Vital Signs Temp Pulse Pulse Resp BP BP BP 09/12/24 08:00 18 09/12/24 07:00 97.4 F L 55 L 18 152/88 09/12/24 01:26 97.3 F L 66 16 144/89 09/12/24 00:00 66 09/11/24 23:20 97 F L 64 17 154/87 09/11/24 22:53 97.9 F 73 16 140/88 09/11/24 21:39 75 18 128/77 09/11/24 19:43 87 18 138/102 09/11/24 17:49 54 L 18 136/94 Pulse Ox 09/12/24 08:00 09/12/24 07:00 98 09/12/24 01:26 97 09/12/24 00:00 09/11/24 23:20 97 09/11/24 22:53 96 09/11/24 21:39 96 09/11/24 19:43 98 09/11/24 17:49 99 Intake and Output 09/11/24 09/12/24 09/12/24 22:59 06:59 14:59 Other: Voiding Method Toilet Toilet # Voids 1 # Bowel Movements 1 Weight 99.337 kg Patient is a middle aged male, very pleasant, in no acute distress. Patient is alert awake oriented to time place and person. Speech and language functions are normal. Patient can name and repeat very well. No aphasia or dysarthria. Attention, concentration and fund of knowledge is adequate. On cranial nerve examination, pupils are equal, round and reacting to light, visual mantilla are full on confrontation, with no neglect on double simultaneous stimulation. Extraocular muscles are intact with no nystagmus. Face is symmetric, tongue protrudes to the midline. Palatal elevation and sensation normal, hearing and shoulder shrug normal, facial sensation normal. On muscle strength testing, there is no pronator drift and the strength is normal in arms and legs distally and proximally. Deep tendon reflexes are symmetric 1+ at the biceps, 1 brachioradialis, 1 at the knees and plantars are withdrawal. Sensory to touch is equal with no neglect on double simultaneous stimulation. Cerebellar function showed no ataxia for [id number] testing. No dysdiadochokinesia. No ataxia for [id number] testing on either side. Tone and bulk of muscles normal. Gait deferred.. On general examination, there is no carotid bruit or murmur, S1-S2 audible. Chest is clear on consultation. Abdomen is soft nontender. No organomegaly, bowel sounds present. Peripheral pulses are present. No peripheral edema. Results - Laboratory Findings CBC and BMP: 09/11/24 14:46 09/11/24 14:46 Abnormal Lab Findings: Abnormal Labs 09/11/24 09/11/24 09/11/24 14:46 16:45 17:53 Sodium 135 L Glucose 271 H POC Glucose (mg/dL) 217 H 229 H 09/11/24 09/11/24 09/11/24 19:01 20:41 22:23 Sodium Glucose POC Glucose (mg/dL) 193 H 225 H 183 H 09/12/24 09/12/24 05:32 12:09 Sodium Glucose POC Glucose (mg/dL) 128 H 194 H Assessment and Plan Assessment: * 49-year-old male presenting with multiple transient neurological symptoms with transient slurring, left arm numbness, dizziness, like blacking out. Exact cause is uncertain. Rule out TIA. Patient's ABCD2 score 4 (moderate risk) * Diabetes, poorly controlled * Hyperlipidemia * Elevated blood pressure on arrival, rule out hypertension * X tobacco use Plan: * Patient needs workup for TIA. * MRI of the brain without contrast, evaluate for acute CVA, initiated in the ER. * 2-D echo with bubble study to rule out PFO * CTA head and neck showed: No evidence of significant stenosis of the carotid bifurcations. No large vessel occlusion or aneurysm at the level of [place]. * Fasting a.m. lipid panel, with cholesterol 171, LDL 98, HDL 33, triglycerides 193. Agree with starting Lipitor 20 mg. * Hemoglobin A1c 13.3, consistent with poorly controlled diabetes. * Optimize control of blood pressure. Patient's blood pressure was elevated on arrival. Watch for hypertension. * Start aspirin 325 mg daily. Patient may benefit from DAPT for 21 days and then maintained on aspirin. * Neuro checks every 4 hours * Telemetry monitoring rule out any arrhythmia * PT, OT, speech therapy * DVT prophylaxis: Lovenox 40 mg subcu daily * Neurology will continue to follow. Thank you for the consult.
[2024-09-13 09:06] VITALS: RESP 16
[2024-09-13 11:51] LABS: Glucose,Whole Blood 245 mg/dL (70-110)
[2024-09-13 12:55] VITALS: BMI 28.8
[2024-09-13 16:32] VITALS: BP 110/71; PULSE 65; TEMP 97.9
--- NOTE | 2024-09-13 16:58 | CA ---
Transthoracic Echo Report Name: Doron Nuñez Age: 49 Gender: M : 1975 Exam Date: 09/13/2024 07:53 Exam Location: [facility] Ht (in): 73 Wt (lb): 219 Ordering Physician: Juan Osullivan MD Attending/Referring Phys: Stitcher Tape Controlled Machine Mimi Olivarez RDCS Procedure CPT: Indications: possible TIA Cardiac Hx: Technical Quality: Good Contrast 1: Agitated Saline Total Dose (mL): 9 Contrast 2: Total Dose (mL): MEASUREMENTS (Male / Female) Normal Values 2D ECHO LV Diastolic Diameter PLAX 4.9 cm 4.2 - 5.9 / 3.9 - 5.3 cm LV Systolic Diameter PLAX 3.1 cm IVS Diastolic Thickness 1.2 cm 0.6 - 1.0 / 0.6 - 0.9 cm LVPW Diastolic Thickness 1.3 cm 0.6 - 1.0 / 0.6 - 0.9 cm LV Relative Wall Thickness 0.5 RV Internal Dim ED PLAX 3.5 cm LA Systolic Diameter LX 4.0 cm 3.0 - 4.0 / 2.7 - 3.8 cm LV Diastolic Volume MOD 4C 116.4 cm??? LV Systolic Volume MOD 4C 54.0 cm??? LV Ejection Fraction MOD 4C 53.6 % LV Cardiac Index MOD 4C 1533.0 cm???/min???m??? LV Diastolic Length 4C 9.6 cm LV Systolic Length 4C 7.8 cm LV Diastolic Volume MOD 2C 78.4 cm??? LV Systolic Volume MOD 2C 43.8 cm??? LV Ejection Fraction MOD 2C 44.1 % LV Cardiac Index MOD 2C 849.1 cm???/min???m??? LV Diastolic Length 2C 9.6 cm LV Systolic Length 2C 8.2 cm LA Volume 76.4 cm??? 18 - 58 / 22 - 52 cm??? LA Volume Index 33.5 cm???/m??? 16 - 28 cm???/m??? M-MODE Aortic Root Diameter MM 3.8 cm AV Cusp Separation MM 2.8 cm DOPPLER MV Area PHT 3.9 cm??? Mitral E Point Velocity 80.0 cm/s Mitral A Point Velocity 59.6 cm/s Mitral E to A Ratio 1.3 MV Deceleration Time 194.0 ms MV E' Velocity 12.7 cm/s Mitral E to MV E' Ratio 6.3 FINDINGS Left Ventricle Left ventricular ejection fraction is estimated at 55-60 %. Mildly increased septal wall thickness. Left ventricular cavity size normal. Normal left ventricular wall motion. Right Ventricle . Unable to estimate the right ventricular systolic pressure.normal right ventricular size and function. Right Atrium Normal right atrial size.no right atrial thrombus or mass seen. Left Atrium Mildly increased left atrial volume. Mildly increased left atrial area. No left atrial thrombus or mass present. Mitral Valve Structurally normal mitral valve. No mitral stenosis, regurgitation or prolapse. Aortic Valve Trileaflet aortic valve. No aortic valve stenosis or regurgitation. Tricuspid Valve Structurally normal tricuspid valve. No tricuspid stenosis, regurgitation or prolapse. Pulmonic Valve Structurally normal pulmonic valve. No pulmonic regurgitation. Pericardium No pericardial or pleural effusion. Aorta Mild aortic dilatation at the level of the sinuses of [place] 38 mm CONCLUSIONS LVEF 55% Mild increase septal wall thickness Normal RV size and systolic function Mild left atrial dilatation No significant valvular dysfunction No evidence of [id number] intracardiac shunting on bubble study Previewed by: Dr Daren Dougherty (Electronically Signed) Final Date: 13 September 2024 16:57
[2024-09-14] MEDS ORDERED: glipiZIDE 10 MG TAB PO SCH (07:30)
--- NOTE | 2024-09-14 10:38 | P.DS ---
Providers Date of admission: 09/11/24 21:21 Expected date of discharge: 09/13/24 Attending physician: Yang Canela Consults: 09/11/24 21:14 Consult Physician Routine Consulting Provider: Juan Osullivan Consult Reason/Comments: Question TIA Do you want consulting provider notified?: Yes, Notify in am Primary care physician: [facility] Course: Chief Complaint: Tongue numbness, finger numbness Very pleasant 49-year-old patient, follows with Beto Villarreal. Patient been diagnosed with diabetes for last 15 years. Normally takes metformin and glipizide. Feels reasonably controlled. Before the holidays patient ran out of his glipizide and has not taken it for close to 2 months. Patient works with [employer]. When he was working yesterday he felt as if he may pass out. [place] dizzy. Sat down. Went to his truck and took his Accu-Chek came back at 387 and repeat after some time was 398. He also felt his tongue was a bit uncomfortable not really swollen and also had some numbness in the pinky and the fourth finger on the left hand on the forearm. Otherwise no change in speech headache otherwise. Also the patient's been experiencing leg cramps. For this reason patient was brought in. Was given 1 dose of Levemir in the evening. Patient's at the bedside. September 13: MRI of the brain came back negative. Dr. Dougherty from cardio communicated to me that the bubble study was negative. Discussed with the patient regarding his diabetes. Patient will be kept on metformin home dose and glipizide also once a day. Lipitor and lisinopril was added. Should follow-up with his PCP. Patient symptoms most likely from hypoglycemia., As though not in any specific distribution of cerebral artery.. All of patient's symptoms are resolved Social history: Patient stopped smoking a year ago. Smoked about a pack a day for last 28 years. Lives with his . Does work on hunting bows and guns. Physical examination: VITAL SIGNS: 97.9, 65, 16, 110 x 71, 97% room air GENERAL: Comfortable EYES: Pupils equal. Conjunctiva lamonte l. HEENT: External appearance of nose and ears normal, oral cavity grossly normal. NECK: JVD not raised; masses not palpable. HEART: First and second heart sounds are normal; no edema. LUNGS: Respiratory rate normal; clear to auscultation. ABDOMEN: Soft, nontender, liver spleen not palpable, no masses palpable. PSYCH: Alert and oriented x3; mood and affect lamonte l. NEUROLOGICAL: Cranial nerves grossly intact; no facial asymmetry, power and sensation grossly intact. INVESTIGATIONS, reviewed in the clinical context: 2D echocardiogram: EF preserved. Bubble study negative MRI brain: Negative LDL 98.8 September 11: White count 8.5 hemoglobin 15.1 platelets 231 sodium 135 potassium 4.6 creatinine 0.8 admission glucose 271. Acetone negative EKG tracing personally reviewed by me-heart rate [address] brain without contrast: Unremarkable CT angiogram head and neck: Unremarkable Chest x-ray film personally reviewed by me-unremarkable Assessment plan: -Symptoms uncontrolled hyperglycemia secondary to diabetes. Doubt TIA -Diabetes mellitus type 2, uncontrolled with hyperglycemia Patient's been diabetic for 15 years. 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 Will resume patient on metformin 1000 mg twice daily. Glyburide 10 mg a day. -Essential hypertension Given a diabetic. Patient lisinopril 10 mg nightly - hyperlipidemia LDL 98 Try to obtain a goal between 50-70 LDL. Lipitor 20 mg nightly Disposition: Home Plan - Discharge Summary New Discharge Prescriptions: New lisinopriL [Zestril] 10 mg PO HS #30 tab Aspirin 81 mg PO DAILY #30 tab Atorvastatin [Lipitor] 20 mg PO HS #30 tab Continue metFORMIN HCL [Glucophage] 1,000 mg PO BID glipiZIDE XL [Glucotrol XL] 10 mg PO DAILY Discharge Medication List metFORMIN HCL [Glucophage] 1,000 mg PO BID 09/11/24 [History] glipiZIDE XL [Glucotrol XL] 10 mg PO DAILY 09/12/24 [History] Aspirin 81 mg PO DAILY #30 tab 09/13/24 [Rx] Atorvastatin [Lipitor] 20 mg PO HS #30 tab 09/13/24 [Rx] lisinopriL [Zestril] 10 mg PO HS #30 tab 09/13/24 [Rx] Follow up Appointment(s)/Referral(s): Moises Villarreal NPC [REFERRING] - 1-2 days Activity/Diet/Wound Care/Special Instructions: Daily Accu-Cheks in a.m.: Keep log. Take it to his PCP. Consistent carbohydrate diet Discharge Disposition: HOME SELF-CARE
== END 2024-09-13 17:30 | disposition home or self-care (01) ==
LOC: EC 11:57 → 6NMEDSUR 21:21
PROVIDERS: ADMIT Hospitalist; ATTEND Hospitalist
DX: E11.65 Type 2 diabetes mellitus with hyperglycemia (principal); T38.3X6A Underdosing of insulin and oral hypoglycemic [antidiabetic] drugs, initial encounter; Z91.128 Patient's intentional underdosing of medication regimen for other reason; I10 Essential (primary) hypertension; E78.5 Hyperlipidemia, unspecified; I49.8 Other specified cardiac arrhythmias; R00.1 Bradycardia, unspecified; M62.831 Muscle spasm of calf; R20.2 Paresthesia of skin; R47.81 Slurred speech; R20.0 Anesthesia of skin; E66.9 Obesity, unspecified; Z68.28 Body mass index [BMI] 28.0-28.9, adult; Z79.84 Long term (current) use of oral hypoglycemic drugs; Z88.0 Allergy status to penicillin; Z88.8 Allergy status to other drugs, medicaments and biological substances; Z87.891 Personal history of nicotine dependence; Z86.69 Personal history of other diseases of the nervous system and sense organs
CPT/HCPCS: 96372 ×2; 96360; 96361; 99291; 36415; 93005; 93306; 80061; 80053; 82550; 82009; 84484; 85025; 85610; 85730; 83036; 71046; 70496; 70450; 70498; 70551; G0378 ×3; J1650 ×2; Q9967